=== PATIENT | female | born 1940 | race Caucasian/White ===

== ENCOUNTER 2023-10-07 15:00 | Emergency (ER) | payer MEDICARE, OTHER, SELFPAY ==
[2023-10-07 15:10] VITALS: BP 188/98; BMI 28.3
--- NOTE | 2023-10-07 15:54 | EDRN ---
the registrar came up to this RN in triage and notified this RN that the pt had started to 'profusely vomit' and had a 'severe headache', this RN notified charge nurse and CT scan, this RN along with Edward ARAUZ brought the pt directly to CT scan and
the pt has a room waiting for her in ED Bed # 36
[2023-10-07 16:03] VITALS: BP 171/82
[2023-10-07 16:05] VITALS: BP 171/82
--- NOTE | 2023-10-07 16:14 | EDRN ---
Dr. Hamilton in w/ pt.
[2023-10-07 17:00] VITALS: BP 157/74
[2023-10-07] MEDS: TYLENOL 1000 MG PO (17:53)
[2023-10-07] MEDS: ZOFRAN ODT (ORALLY DISINTEGRATING) 4 MG PO (17:56)
[2023-10-07 18:00] VITALS: BP 185/80
--- NOTE | 2023-10-07 18:10 | ED.GENMED ---
History of Present Illness
General
Chief Complaint: Fall
Source: patient
Time Seen by Provider: 10/07/23 16:08
Travel History
Have you had any contact with someone who has COVID-19?: No
Do you have any symptoms of coronavirus? Fever > 100 degrees, chills, cough, shortness of breath, sore throat, loss of taste or smell, muscle aches, or headache?: No
History of Present Illness
History of Present Illness:
83-year-old female presents emergency room after suffering a fall and head injury. Patient states she was walking and tripped falling forward. She struck her head on the concrete floor. No LOC. She developed a large lump on her forehead almost
immediately. Patient has had some nausea and vomiting since the fall. She denies any neck pain. She denies any other injuries.
Past History
Past History
ED Past Medical History: None
ED Past Surgical History: None
Social History
Tobacco: Non-smoker
Alcohol: None
Drug: None
Personal:
Living: with family
Employment: Retired
Family History
Family History: Other (Noncontributory)
Phy Exam
Physical Exam
Physical Exam:
General: Awake, Alert, Oriented X3. No acute distress.
Vitals: unremarkable
Head: Left frontal\\supraorbital hematoma
Eyes: Pupils equal, EOMI
Throat: Airway intact, no exudates
Neck: Trachea midline
Lungs: Clear and equal b/l
Heart: Regular rate, no murmurs
Abd: Soft, Nontender, No pulsatile mass
Neuro: Cranial nerves intact, muscle strength equal bilaterally, cerebellar exam normal
Skin: Warm, dry, no rash
Extremities: pulses equal b/l, no edema
Course
Orders/Labs/Results
Orders:
Orders
10/07/23 15:10
CT Head W/o Iv Contrast Urgent
Comment:
Reason For Exam: head strike with fall
10/07/23 17:49
Acetaminophen [Tylenol] 1,000 mg .ROUTE .STK-MED ONE
Ondansetron Orally Disint [Zofran Odt (Orally Disintegrating)] 4 mg .ROUTE .STK-MED ONE
10/07/23 17:52
Acetaminophen [Tylenol] 1,000 mg PO NOW STA
10/07/23 17:56
Ondansetron Orally Disint [Zofran Odt (Orally Disintegrating)] 4 mg PO NOW STA
Vital Signs
Initial and Last Documented VS:
Initial Vital Signs
Temp Pulse Resp BP Pulse Ox
97.8 F 82 16 188/98 98
10/07/23 15:10 10/07/23 15:10 10/07/23 15:10 10/07/23 15:10 10/07/23 15:10
Last Documented Vital Signs
Temp Pulse Resp BP Pulse Ox
97.8 F 93 20 185/80 95
10/07/23 15:10 10/07/23 18:00 10/07/23 18:02 10/07/23 18:00 10/07/23 18:00
MDM/Problems Addressed
Differential Diagnosis Includes:
Subdural hematoma, subarachnoid hemorrhage, concussion
MDM/Problems Addressed:
CT of the head shows no intracranial bleed. She does have a significant frontal hematoma. Patient observed for period time and has remained stable. Will treat her nausea with antiemetics but patient stable for discharge home.
*Radiology
Radiology exam reviewed: radiology read reviewed
*Pulse Oximetry
Patient hypoxic: no
*Critical Care Note
Total Time (30-74mins, 75-104mins- exclusive of procedures): Not Applicable
ED Attending Note
-
Portions of this chart may have been created with voice recognition software.� Occasional wrong word or��sound alike� substitutions may have occurred due to the inherent limitations of voice recognition software.
Discharge Plan
Departure
Patient Disposition: Home (Routine Discharge)
Date of Disposition: 10/07/23
Time of Disposition: 18:12
Patient with high blood pressure during this ER visit?: Yes
Condition: Good
Discharge Problem:
Head injury, Traumatic hematoma of forehead
Instructions: Concussion, Adult (DC), BLOOD PRESSURE, Hematoma
Prescriptions:
New
ondansetron 4 mg tablet,disintegrating
4 mg PO Q8H PRN (Reason: nausea and vomiting) 3 Days Qty: 9 0RF
No Action
multivitamin [Multi-Day] 1 EACH tablet
1 ea PO DAILY
amlodipine 2.5 MG tablet
2.5 mg PO HS
pravastatin 10 MG tablet
10 mg PO HS
fluoxetine 10 MG capsule
10 mg PO DAILY
lisinopril 40 MG tablet
40 mg PO DAILY
hydrocodone-acetaminophen [[place]] 1 EACH tablet
1 ea PO Q6HPRN PRN (Reason: pain) Qty: 40 0RF
Rx Instructions:
Take 1 tablet four times a day, every 6 hours for pain
lorazepam 1 MG tablet
1 mg PO TIDPRN PRN (Reason: pain/spasms) Qty: 40 0RF
hydrocodone-acetaminophen 1 TABLET tablet
1 tab PO Q4HPRN PRN (Reason: pain) Qty: 10 0RF
ondansetron 4 MG tablet,disintegrating
4 mg PO TIDPRN PRN (Reason: nausea/vomiting) Qty: 10 0RF
ibuprofen 400 MG tablet
400 mg PO Q6HPRN PRN (Reason: pain) Qty: 20 0RF
Referrals:
Gomez Gonzalez DO [Family Provider] -
Interventions
Interventions:
*Risk Screen - Suicide Last Done: 10/07/23 15:10
*General Assessment Last Done: 10/07/23 15:10
*Neglect/Abuse Screening Last Done: 10/07/23 16:05
ED- Fall Risk Assessment Last Done: 10/07/23 16:09
*ED COVID-19 Vaccine History Last Done: 10/07/23 15:10
*Nursing Disposition Last Done: 10/07/23 18:59
ED-Musculoskeletal Assessment Last Done: 10/07/23 16:09
ED- Neurological Assessment Last Done: 10/07/23 16:09
ED-Skin Assessment Last Done: 10/07/23 16:09
Discharge Date and Time
Discharge Date/Time: 10/07/23 19:00
Print Language: BENGALI
== END 2023-10-07 19:00 | disposition home or self-care (01) ==
LOC: EMR 15:00
PROVIDERS: EMERGENCY PHYSICIAN Emergency Medicine; FAMILY PHYSICIAN Family Medicine
DX: S09.90XA Unspecified injury of head, initial encounter (principal); S00.83XA Contusion of other part of head, initial encounter; W01.198A Fall on same level from slipping, tripping and stumbling with subsequent striking against other object, initial encounter; Y93.01 Activity, walking, marching and hiking
CPT/HCPCS: 99284; 70450

== ENCOUNTER → 2024-01-14 11:17 | Outpatient (REF) | payer MEDICARE, OTHER, SELFPAY ==
[2024-01-14 13:39] LABS: HDL Cholesterol 57 mg/dl; LDL Cholesterol, Calculated 109 mg/dl; Total Cholesterol 187 mg/dl (50-199); Triglyceride 109 mg/dl (10-149); Very Low Density Lipoprotein 21 mg/dl (0-30)
== END ==
LOC: OLABWIL 11:17
PROVIDERS: ATTENDING PHYSICIAN Student in an Organized Health Care Education/Training Program
DX: E78.2 Mixed hyperlipidemia (principal)
CPT/HCPCS: 36415; 80061

== ENCOUNTER → 2024-01-29 07:59 | Outpatient (REF) | payer MEDICARE, OTHER, SELFPAY | LOC: WDC 07:59 | PROVIDERS: ATTENDING PHYSICIAN Surgery; FAMILY PHYSICIAN Family Medicine | DX: M81.0 Age-related osteoporosis without current pathological fracture (principal); Z12.31 Encounter for screening mammogram for malignant neoplasm of breast | CPT/HCPCS: 77063; 77067; 77080 ==

== ENCOUNTER → 2024-06-01 12:09 | Outpatient (REF) | payer MEDICARE, OTHER, SELFPAY ==
[2024-06-01 12:57] LABS: % Basophils 0.7 % (0-2); % Eosinophils 0.7 % (0-6); % Immature Granulocytes 0.4 % (0-0.5); % Lymphocytes 28.6 % (20.5-51.1); % Monocytes 10.5 % (1.7-9.3); % Neutrophils 59.1 % (42.2-75.2); Absolute Basophils 0.1 10^3/uL (0-0.2); Absolute Eosinophils 0.1 10^3/uL (0-0.7); Absolute Lymphocytes 2.9 10^3/uL (1.2-3.4); Absolute Monocytes 1.1 10^3/uL (0.1-0.6); Hematocrit 39.9 % (37.0-47.0); Hemoglobin 13.3 g/dL (12.0-16.0); Mean Corp Hgb Conc. 33.3 g/dL (33.0-37.0); Mean Corpuscular Hgb 29.8 pg (27.0-31.0); Mean Corpuscular Volume 89.5 fL (81.0-99.0); Mean Platelet Volume 9.9 fL (7.4-10.4); Nucleated Red Blood Cells % 0 %; Platelet Count 247 10^3/uL (130-400); Red Blood Cell Count 4.46 10^6/uL (4.20-5.40); Red Cell Dist. Width 12.6 % (11.5-14.5); White Blood Cell Count 10.2 10^3/uL (4.8-10.8)
== END ==
LOC: REG 12:09
PROVIDERS: ATTENDING PHYSICIAN Physician Assistant Surgical
DX: M17.12 Unilateral primary osteoarthritis, left knee (principal); M48.00 Spinal stenosis, site unspecified
CPT/HCPCS: 36415; 85025

== ENCOUNTER 2024-06-15 08:44 | Inpatient (IN) | payer MEDICARE, OTHER, SELFPAY ==
[2024-05-18 10:35] LABS: Hematocrit 40.7 % (37.0-47.0); Hemoglobin 13.4 g/dL (12.0-16.0); Mean Corp Hgb Conc. 32.9 g/dL (33.0-37.0); Mean Corpuscular Volume 91.3 fL (81.0-99.0); Mean Platelet Volume 9.9 fL (7.4-10.4); Platelet Count 233 10^3/uL (130-400); Red Blood Cell Count 4.46 10^6/uL (4.20-5.40); Red Cell Dist. Width 12.6 % (11.5-14.5); White Blood Cell Count 11.4 10^3/uL (4.8-10.8)
[2024-05-18 11:40] LABS: ALT (SGPT) 21 U/L (0-35); AST (SGOT) 28 U/L (14-36); Albumin 4.1 g/dl (3.5-5.0); Alkaline Phosphatase 50 U/L (38-126); Blood Urea Nitrogen 20 mg/dl (7-17); Calcium 9.4 mg/dl (8.4-10.2); Carbon Dioxide 27 mmol/L (22-30); Chloride 101 mmol/L (98-107); Glucose 82 mg/dl (70-99); Potassium 4.2 mmol/L (3.5-5.1); Sodium 140 mmol/L (135-145); Total Bilirubin 0.7 mg/dl (0.2-1.3); Total Protein 6.6 g/dl (6.3-8.2); eGFR > 60.00
[2024-05-18 12:46] LABS: Glycohemoglobin (HgbA1c) 5.3 % (4.0-5.6)
[2024-05-18 12:56] VITALS: BMI 28.7
[2024-06-09 08:22] VITALS: BMI 28.7
[2024-06-15] VITALS (12 sets, daily range): BP systolic 149–183; BP diastolic 82–99; PULSE 87; O2SAT 97
[2024-06-15] MEDS: CELEBREX 200 MG PO (09:02)
[2024-06-15] MEDS: TYLENOL 650 MG PO ×3 (09:02→19:52)
[2024-06-15] MEDS: NORMOSOL-R/PLASMALYTE-A 1000 IV ×2 (09:04→14:59)
--- NOTE | 2024-06-15 12:04 | W.PN.UPDATE ---
Update Note
Progress Note Update
L TKA Dr. Lucas 06/15/24
Hx L HYACINTH CBB 2008
Breast CA DCIS s/p R lump 2018
HTN
HLD
D/A
DDD
--- NOTE | 2024-06-15 12:10 | W.DS.TRANS ---
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
-
Discharge Instructions:
Sleep Apnea Risk Low
Discharge Diagnosis/Procedures L TKA Dr. Lucas 06/15/24
Diet No restrictions,As tolerated
Driving Restrictions No driving
Bathing Restrictions OK to Shower
Other Services PT
Instructions:
Stand-Alone Forms: Total Hip/Knee Replacement D/C
Changes to Home Medications: Yes
Discharge Medications:
DC Medications w/original date entered in [facility]
fluoxetine 10 mg capsule 10 mg PO DAILY 07/13/16
lisinopril 40 mg tablet 40 mg PO DAILY 07/13/16
multivitamin (Multi-Day tablet) 1 ea PO DAILY 07/13/16
pravastatin 10 mg tablet 80 mg PO DAILY 07/13/16
glucosamine sulf dipot chlr,msm,chond 550 mg-C 30 mg-viri 1 mg capsule (Glucosamine Chondroitin) 1,500 cap PO DAILY 06/09/24
mupirocin 2 % topical ointment 1 applic topical BID 06/09/24
omega 8-lor-jpf-fish oil 1,000 mg (120 mg-180 mg) capsule (Fish Oil) 1 cap PO DAILY 06/09/24
acetaminophen 325 mg tablet (Tylenol) 650 mg (2 x 325 mg) PO QID #0 tabs 06/15/24
aspirin 325 mg tablet 325 mg PO DAILY blood clot prevention #1 tab 06/15/24
celecoxib 100 mg capsule 100 mg PO BID Anti-inflammatory #14 caps 06/15/24
dexamethasone 4 mg tablet 4 mg PO BID inflammation #6 tabs 06/15/24
docusate sodium 100 mg capsule (Colace) 100 mg PO BID stool softner #1 cap 06/15/24
magnesium hydroxide 400 mg/5 mL oral suspension (Milk of Magnesia) 30 ml PO HS PRN Constipation #1 mL 06/15/24
ondansetron 4 mg disintegrating tablet 4 mg PO Q6H PRN n/v #20 tabs 06/15/24
oxycodone 5 mg tablet 5 mg PO Q6H PRN 1 tab moderate pain, 2 tabs severe pain #30 tabs 06/15/24
sennosides 8.6 mg tablet (Senokot) 17.2 mg (2 x 8.6 mg) PO BID laxative #2 tabs 06/15/24
Home Medication Changes
aspirin 325 mg tablet 325 mg PO DAILY blood clot prevention #1 tab 06/15/24
celecoxib 100 mg capsule 100 mg PO BID Anti-inflammatory #14 caps 06/15/24
dexamethasone 4 mg tablet 4 mg PO BID inflammation #6 tabs 06/15/24
docusate sodium 100 mg capsule (Colace) 100 mg PO BID stool softner #1 cap 06/15/24
magnesium hydroxide 400 mg/5 mL oral suspension (Milk of Magnesia) 30 ml PO HS PRN Constipation #1 mL 06/15/24
ondansetron 4 mg disintegrating tablet 4 mg PO Q6H PRN n/v #20 tabs 06/15/24
oxycodone 5 mg tablet 5 mg PO Q6H PRN 1 tab moderate pain, 2 tabs severe pain #30 tabs 06/15/24
sennosides 8.6 mg tablet (Senokot) 17.2 mg (2 x 8.6 mg) PO BID laxative #2 tabs 06/15/24
Pending Results: No
[2024-06-15] MEDS: DILAUDID 0.25 MG IV ×2 (13:10→13:32)
[2024-06-15] MEDS: ZOFRAN 4 MG IV ×2 (13:41→21:11)
[2024-06-15] MEDS: APRESOLINE 5 MG IV (14:12)
[2024-06-15] MEDS: TYLENOL PO (14:49)
[2024-06-15] MEDS: PROZAC PO ×2 (14:58→15:41)
[2024-06-15] MEDS: PRAVACHOL PO ×2 (15:00→15:41)
--- NOTE | 2024-06-15 15:19 | PTCARENOTE ---
Pt received from PACU s/p L TKA. Dressing with small amount of drainage. Neurovascular checks WDL. Pt AAOx3. NSR on phototypesetting equipment monitor. SpO2 96% on 2L. Pt nauseous at times. Kim received in PACU prior to coming to room. Will monitor for now. Family
at bedside, call ivory in reach.
[2024-06-15] MEDS: ROXICODONE 2.5 MG PO (15:45)
[2024-06-15] MEDS: ASPIRIN 325 MG PO (17:05)
[2024-06-15] MEDS: ANCEF 5 IV (19:51)
[2024-06-15] MEDS: BACTROBAN 2% OINTMENT 1 APPLIC NASAL (19:51)
[2024-06-15] MEDS: SENOKOT 17.2 MG PO (19:52)
[2024-06-15] MEDS: COLACE 100 MG PO (19:53)
[2024-06-15] MEDS: DECADRON 6 MG IV (19:55)
[2024-06-15] MEDS: TORADOL 15 MG IV (19:55)
[2024-06-15] MEDS: ULTRAM 50 MG PO (20:51)
[2024-06-15] MEDS: NEURONTIN 300 MG PO (21:11)
[2024-06-16] MEDS: TYLENOL PO (00:51)
[2024-06-16 03:00] VITALS: BP 146/95
[2024-06-16] MEDS: TYLENOL 650 MG PO ×3 (03:28→12:33)
[2024-06-16] MEDS: ANCEF 5 IV (03:28)
[2024-06-16 06:00] VITALS: BMI 28.9
[2024-06-16] MEDS: ULTRAM 50 MG PO (06:06)
[2024-06-16] MEDS: DECADRON 6 MG IV (06:06)
[2024-06-16] MEDS: TORADOL 15 MG IV (06:06)
[2024-06-16 08:11] VITALS: BP 150/90
[2024-06-16] MEDS: ZESTRIL 20 MG PO (08:12)
[2024-06-16] MEDS: CELEBREX 200 MG PO (08:13)
[2024-06-16] MEDS: ASPIRIN 325 MG PO (08:13)
[2024-06-16] MEDS: SENOKOT 17.2 MG PO (08:13)
[2024-06-16] MEDS: COLACE 100 MG PO (08:13)
[2024-06-16] MEDS: BACTROBAN 2% OINTMENT 1 APPLIC NASAL (08:14)
[2024-06-16] MEDS: PROZAC 10 MG PO (09:31)
[2024-06-16] MEDS: PRAVACHOL 80 MG PO (09:31)
[2024-06-16 10:37] VITALS: BP 134/63; PULSE 89; O2SAT 95
--- NOTE | 2024-06-16 10:58 | CM ---
Addendum entered by Jamila Mancia RN 06/16/24 11:50:
IMM signed.
Original Note:
Reviewed the chart notes and spoke with the patient at the bedside. The patient resides with spouse in independent living apartment at [facility]. The patient has a shower chair and rolling walker. The patient has no had VN in the past, but did have a
stay at [facility]. The patient's PCP is Dr. Gonzalez. The patient confirmed her pharmacy of choice is the [facility]. The patient anticipates having therapy at [facility]. First session
scheduled for 06/18/24. CM continues to be available to patient/family and is monitoring medical plan for needs at discharge.
Plan: Discharge to home when medically stable with outpatient therapy.
[2024-06-16 11:07] VITALS: BP 126/76
--- NOTE | 2024-06-16 11:12 | W.PN.ORTHO ---
Today's Communication / Plan
-
d/c
Assessment
.
Distal Motor Intact: Yes
Dressing:
Clean, dry and intact.
Assessment:
Hx PVCs with runs of bigeminy reported by nurse on tele-asymptomatic, similar to prior tracing, echo stable
Plan
.
Surgery / Date: L OLIVER Lucas 06/15/24
DVT Prophylaxis: Aspirin
Activity:
Out of bed.
PT/OT
Discharge Plan: Home w/ Outpatient PT
Subjective
.
.:
Patient resting comfortably.
Vital Signs and Labs
.
Vital Signs and Labs:
Lab Results
05/18/24 10:08
05/18/24 10:08
Temp Pulse Resp BP Pulse Ox
97.5 F 85 18 126/76 95
06/16/24 11:07 06/16/24 11:07 06/16/24 11:07 06/16/24 11:07 06/16/24 11:07
Non-invasive Hgb result: 13.2
Physical Exam
-
HEENT: No pallor, cyanosis, or jaundice. Throat clear.
NECK: Supple. No JVD.
RESPIRATORY: Lungs clear to auscultation.
CVS: S1, S2 normal. RRR.� No murmur, rub or gallop.
ABDOMEN: Soft, non-tender. No distension. BS+/normal.
EXTREMITIES: strength equal, no calf pain with palpation
DRILL RIG OPERATOR HELPER: AOx3. No focal deficits. canine deputy grossly intact
[2024-06-16 11:50] VITALS: BP 126/76; PULSE 86; O2SAT 96
== END 2024-06-16 13:32 | disposition home or self-care (01) | DRG 470 ==
LOC: 2 SOUTH 08:44
PROVIDERS: ADMITTING PHYSICIAN Specialist; FAMILY PHYSICIAN Family Medicine; REFERRING PHYSICIAN Internal Medicine Cardiovascular Disease
PROC: 0SRD0J9 Replacement of Left Knee Joint with Synthetic Substitute, Cemented, Open Approach (ICD-10-PCS; 2024-06-15)
DX: M17.12 Unilateral primary osteoarthritis, left knee (principal); F32.A Depression, unspecified; E78.5 Hyperlipidemia, unspecified; I10 Essential (primary) hypertension; M81.0 Age-related osteoporosis without current pathological fracture; I34.0 Nonrheumatic mitral (valve) insufficiency; M48.061 Spinal stenosis, lumbar region without neurogenic claudication; Z96.642 Presence of left artificial hip joint; Z88.5 Allergy status to narcotic agent
CPT/HCPCS: 36415; 73560; 80053; 83036; 85027; 87070; 97110; 97162; 97166; 97530; C1713; C1776

== ENCOUNTER → 2024-06-30 10:41 | Outpatient (REF) | payer MEDICARE, OTHER, SELFPAY ==
[2024-06-30 17:00] LABS: HDL Cholesterol 44 mg/dl; LDL Cholesterol, Calculated 89 mg/dl; Total Cholesterol 180 mg/dl (50-199); Triglyceride 235 mg/dl (10-149); Very Low Density Lipoprotein 47 mg/dl (0-30)
== END ==
LOC: OLABWIL 10:41
PROVIDERS: ATTENDING PHYSICIAN Family Medicine
DX: E78.2 Mixed hyperlipidemia (principal)
CPT/HCPCS: 36415; 80061

== ENCOUNTER → 2024-11-05 12:02 | Outpatient (REF) | payer MEDICARE, OTHER, SELFPAY ==
[2024-11-05 13:17] LABS: ALT (SGPT) 16 U/L (0-35); AST (SGOT) 23 U/L (14-36); Albumin 4.1 g/dl (3.5-5.0); Alkaline Phosphatase 61 U/L (38-126); Blood Urea Nitrogen 21 mg/dl (7-17); Calcium 9.5 mg/dl (8.4-10.2); Carbon Dioxide 25 mmol/L (22-30); Chloride 106 mmol/L (98-107); Glucose 102 mg/dl (70-99); HDL Cholesterol 40 mg/dl; LDL Cholesterol, Calculated 110 mg/dl; Potassium 4.1 mmol/L (3.5-5.1); Sodium 139 mmol/L (135-145); Total Bilirubin 0.8 mg/dl (0.2-1.3); Total Cholesterol 182 mg/dl (50-199); Total Protein 6.4 g/dl (6.3-8.2); Triglyceride 162 mg/dl (10-149); Very Low Density Lipoprotein 32 mg/dl (0-30); eGFR > 60.00
[2024-11-05 13:25] LABS: Urine Albumin 1+ (Neg - Trace); Urine Bilirubin Negative (Negative); Urine Character Cloudy (Clear); Urine Color Yellow; Urine Glucose Negative (Negative); Urine Ketone Negative (Negative); Urine Leukocyte 3+ (Negative); Urine Nitrite Positive (Negative); Urine Occult Blood 2+ (Negative); Urine Specific Gravity 1.015 (<1.030); Urine Urobilinogen Negative (Neg - 1+)
[2024-11-05 13:34] LABS: Vitamin D, 25-OH*** 34.5 ng/mL (30-80)
[2024-11-05 13:41] LABS: % Basophils 0.7 % (0-2); % Immature Granulocytes 0.2 % (0-0.5); % Lymphocytes 32.2 % (20.5-51.1); % Monocytes 11.3 % (1.7-9.3); % Neutrophils 53.6 % (42.2-75.2); Absolute Basophils 0.1 10^3/uL (0-0.2); Absolute Eosinophils 0.2 10^3/uL (0-0.7); Absolute Lymphocytes 3.2 10^3/uL (1.2-3.4); Absolute Monocytes 1.1 10^3/uL (0.1-0.6); Absolute Neutrophils 5.3 10^3/uL (1.4-6.5); Hematocrit 37.5 % (37.0-47.0); Mean Corp Hgb Conc. 34.7 g/dL (33.0-37.0); Mean Corpuscular Volume 86.4 fL (81.0-99.0); Nucleated Red Blood Cells % 0 %; Red Blood Cell Count 4.34 10^6/uL (4.20-5.40); Red Cell Dist. Width 13.2 % (11.5-14.5); White Blood Cell Count 9.8 10^3/uL (4.8-10.8)
[2024-11-05 13:42] LABS: Glycohemoglobin (HgbA1c) 5.3 % (4.0-5.6)
[2024-11-05 13:48] LABS: TSH 1.98 uIU/ml (0.47-4.68)
[2024-11-05 14:29] LABS: Urine Amorphous Seen
[2024-11-05 14:32] LABS: Urine Bacteria Many (Negative); Urine White Cell 90-100 /HPF (0-5)
[2024-11-05 14:51] LABS: Mean Platelet Volume 11.4 fL (7.4-10.4); Platelet Count 209 10^3/uL (130-400)
== END ==
LOC: OLABWIL 12:02
PROVIDERS: ATTENDING PHYSICIAN Family Medicine
DX: E78.2 Mixed hyperlipidemia (principal); I10 Essential (primary) hypertension; M81.0 Age-related osteoporosis without current pathological fracture; Z79.899 Other long term (current) drug therapy
CPT/HCPCS: 36415; 80053; 80061; 81003; 81015; 82306; 83036; 84443; 85025

== ENCOUNTER → 2025-02-02 08:57 | Outpatient (REF) | payer MEDICARE, OTHER, SELFPAY | LOC: WDC 08:57 | PROVIDERS: ATTENDING PHYSICIAN Surgery; FAMILY PHYSICIAN Family Medicine | DX: Z12.31 Encounter for screening mammogram for malignant neoplasm of breast (principal) | CPT/HCPCS: 77063; 77067 ==

== ENCOUNTER → 2025-05-18 09:52 | Outpatient (REF) | payer MEDICARE, OTHER, SELFPAY ==
[2025-05-18 11:10] LABS: Hematocrit 40.7 % (37.0-47.0); Hemoglobin 13.2 g/dL (12.0-16.0); Mean Corp Hgb Conc. 32.4 g/dL (33.0-37.0); Mean Corpuscular Volume 90.2 fL (81.0-99.0); Nucleated Red Blood Cells % 0 %; Platelet Count 226 10^3/uL (130-400); Red Cell Dist. Width 13.1 % (11.5-14.5)
[2025-05-18 11:23] LABS: ALT (SGPT) 18 U/L (0-35); AST (SGOT) 26 U/L (14-36); Albumin 4.0 g/dl (3.5-5.0); Alkaline Phosphatase 64 U/L (38-126); Blood Urea Nitrogen 17 mg/dl (7-17); Calcium 9.3 mg/dl (8.4-10.2); Carbon Dioxide 29 mmol/L (22-30); Chloride 102 mmol/L (98-107); Glucose 96 mg/dl (70-99); HDL Cholesterol 46 mg/dl; LDL Cholesterol, Calculated 107 mg/dl; Potassium 4.2 mmol/L (3.5-5.1); Sodium 136 mmol/L (135-145); Total Protein 6.0 g/dl (6.3-8.2); Very Low Density Lipoprotein 34 mg/dl (0-30); eGFR > 60.00
== END ==
LOC: OLABWIL 09:52
PROVIDERS: ATTENDING PHYSICIAN Family Medicine
DX: E78.2 Mixed hyperlipidemia (principal); I10 Essential (primary) hypertension
CPT/HCPCS: 36415; 80053; 80061; 85025